=== PATIENT | female | born 1980 | race American Indian/Alaskan Native ===

== ENCOUNTER 2016-07-22 08:59 | Day surgery (SDC) | payer BC ==
[2016-07-16 09:45] LABS: Basophils % (Auto) 0.8 % (0.0-1.8); Hematocrit 35.4 % (30.3-42.9); Hemoglobin 11.8 gm/dl (10.1-14.3); Mean Corpuscular HGB Conc 33 % (30-34); Mean Corpuscular Hemoglobin 29 pg (28-32); Mean Corpuscular Volume 88 fl (79-97); Platelet Count 178 K/mm3 (140-440); Red Blood Count 4.03 M/mm3 (3.65-5.03); Red Cell Distribution Width 13.5 % (13.2-15.2); White Blood Count 5.8 K/mm3 (4.5-11.0)
--- NOTE | 2016-07-16 10:03 | Anesthesia Consultation ---
Anesthesia Consult and Med Hx Date of service: 07/16/16 - Airway Anesthetic Teeth Evaluation: Good, Crowns (right upper molar) ROM Head & Neck: Adequate Mental/Hyoid Distance: Adequate Mallampati Class: Class II Intubation Access Assessment: Probably Good - Pre-Operative Health Status ASA Pre-Surgery Classification: ASA2 Proposed Anesthetic Plan: General - Pulmonary Hx Asthma: No COPD: No Hx Pneumonia: No - Cardiovascular System Hx Hypertension: No Hx Cardia Arrhythmia: Yes (palpitations, normal EKG) - Central Nervous System Hx Seizures: No Hx Psychiatric Problems: No - Endocrine Hx Renal Disease: Yes (kidney stone) Hx End Stage Renal Disease: No Hx Hypothyroidism: No Hx Hyperthyroidism: No - Hematic Hx Anemia: Yes () Hx Sickle Cell Disease: No - Other Systems Hx Alcohol Use: No Hx Cancer: No
--- NOTE | 2016-07-21 14:19 | History and Physical Report ---
History of Present Illness Date of examination: 07/16/16 Date of admission: 07/22/2016 Chief complaint: here for TL. History of present illness: Pt here for TL. All methods of TL were d/w including salpigectomy. Pt desires salpingectomy. Pt has no other c/o. All questions were addressed and answered.Consents were singed and placed on the chart. Visit Type: Pre-Op CC: pre op. History of Present Illness: pt presents for pre op visit: Salpingectomy......anatoliy Pt desires tubal ligation. Several methods were d/w and she desires the salpingectomy. All risk/benefits/alternatives were d/w pt and questions were addressed and answered. Pt was given ample time to ask questions prior to signing the consents. Vital Signs: Patient Profile: 36 Years Old Female LMP: 06/24/2016 Height: 67 inches (170.18 cm) Weight: 160 pounds BMI: 25.06 BP sittin / 72 (left arm) Menstrual History: LMP (date): 06/24/2016 Current Method of Contraception: None Past History : 2 Term Births: 1 Premature Births: 1 Living Children: 2 Para: 2 # 1 Delivery date: 12/04/2010 Weeks Gestation: 39 Delivery type: Vaginal Hours of labor: 10 Anesthesia type: local Delivery location: [facility] Sex: female weight: 7.31 Name: Christopher Comments: none # 2 Delivery date: 04/06/2013 Weeks Gestation: 36.6 Delivery type: Vaginal Anesthesia type: epidural Delivery location: [facility] Sex: female weight: 7.63 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 of genital herpes: no Partner hx. 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: denies: abnormal PAP smear Family/Genetic History: denies: none Social history: single - Obstetrical History : 2 Medications and Allergies Allergies Allergy/AdvReac Type Severity Reaction Status Date / Time No Known Allergies Allergy Verified 07/15/16 14:28 Home Medications Medication Instructions Recorded Confirmed Last Taken Type No Known Home Medications [No 07/15/16 07/15/16 Unknown History Reported Home Medications] Active Meds: Active Medications Famotidine (Pepcid) 20 mg IV PREOP NR Stop: 07/22/16 23:59 Lactated Ringer's (Lactated Ringers) 1,000 mls @ 100 mls/hr IV DIRECT MARIA INES Cefazolin Sodium (Ancef/Sterile Water 2 Gm/20 Ml) 2 gm in 20 mls @ 80 mls/hr IV PREOP NR PRN Reason: Protocol Midazolam HCl (Versed) 2 mg IV PREOP NR Stop: 07/22/16 23:59 Review of Systems All systems: negative - Vital Signs Vital signs: Vital Signs Temp Pulse Resp BP 98.3 F 68 14 100/60 07/16/16 09:30 07/16/16 09:30 07/16/16 09:30 07/16/16 09:30 Temp Pulse Resp BP Pulse Ox 98.3 F 68 14 100/60 07/16/16 09:30 07/16/16 09:30 07/16/16 09:30 07/16/16 09:30 - Physical Exam Cardiovascular: Normal S1, Normal S2 Lungs: Positive: Clear to auscultation, Normal air movement Abdomen: Positive: normal appearance, soft, normal bowel sounds. Negative: distention, tenderness, guarding Extremities: Positive: normal. Negative: tenderness, edema Deep Tendon Reflex Grade: Normal +2 Results Result Diagrams: 07/16/16 09:41 All other labs normal. Assessment and Plan - Patient Problems (1) Encounter for female sterilization procedure Status: Acute Plan to address problem: -consents signed -admit and prepare for salpingectomy
[~2016-07-22 08:59] MED LIST: ANCEF/STERILE WATER 2 GM/20 ML 2 GM/20 ML SYRINGE IV NR; LACTATED RINGERS 1,000 ML IV SCH; PEPCID IV NR; VERSED IV NR
[2016-07-22] MEDS ORDERED: ZOFRAN IV PRN (09:21)
[2016-07-22] MEDS ORDERED: DILAUDID IV PRN (09:21)
[2016-07-22] MEDS ORDERED: ZEMURON IV ONE (10:35)
[2016-07-22] MEDS ORDERED: SUBLIMAZE ONE (10:35)
[2016-07-22] MEDS ORDERED: DIPRIVAN 10 MG/ML IV ONE (10:35)
[2016-07-22] MEDS ORDERED: XYLOCAINE MPF 2% ONE (10:35)
--- NOTE | 2016-07-22 10:43 | Anesthesia Day of Surgery ---
Anesthesia Day of Surgery - Day of Surgery Patient Examined: Yes Patient H&P Reviewed: Yes Patient is NPO: Yes
[2016-07-22] MEDS ORDERED: MARCAINE 0.5% 30 ML INFILTRATI ONE (11:01)
[2016-07-22] MEDS ORDERED: ANCEF/STERILE WATER 2 GM/20 ML 2 GM/20 ML SYRINGE IV ONE (11:29)
[2016-07-22] MEDS ORDERED: ROBINUL ONE (11:36)
[2016-07-22] MEDS ORDERED: TORADOL ONE (11:36)
[2016-07-22] MEDS ORDERED: ZOFRAN ONE (11:36)
[2016-07-22] MEDS ORDERED: NEOSTIGMINE ONE (11:36)
[2016-07-22] MEDS ORDERED: DECADRON ONE (11:37)
[2016-07-22] MEDS ORDERED: MARCAINE 0.5% INFILTRATI ONE ×2 (11:57)
[2016-07-22] MEDS ORDERED: NACL 0.9% IR ONE (11:58)
--- NOTE | 2016-07-22 12:41 | Short Stay Summary ---
Short Stay Documentation Date of service: 07/22/16 - History H&P: dictated Social history: single - Allergies and Medications Current Medications: Allergies No Known Allergies Allergy (Verified 07/15/16 14:28) Home Medications Medication Instructions Recorded Confirmed Last Taken Type RX: Ibuprofen [Motrin 800 MG tab] 800 mg PO Q6HR PRN #30 tablet 07/22/16 Unknown Rx oxyCODONE /ACETAMINOPHEN [Percocet 1 tab PO Q4HR #30 tab 07/22/16 Unknown Rx 5/325] Active Medications Famotidine (Pepcid) 20 mg IV PREOP NR Stop: 07/22/16 23:59 Last Admin: 07/22/16 10:12 Dose: 20 mg Hydromorphone HCl (Dilaudid) 0.5 mg IV Q10MIN PRN PRN Reason: Pain , Severe (7-10) Stop: 07/22/16 23:59 Lactated Ringer's (Lactated Ringers) 1,000 mls @ 100 mls/hr IV DIRECT MARIA INES Last Admin: 07/22/16 10:10 Dose: 100 mls/hr Midazolam HCl (Versed) 2 mg IV PREOP NR Stop: 07/22/16 23:59 Last Admin: 07/22/16 10:17 Dose: 1 mg Ondansetron HCl (Zofran) 4 mg IV ONCE PRN PRN Reason: Nausea And Vomiting Stop: 07/22/16 23:59 - Physical exam General appearance: no acute distress, well-nourished Breasts: deferred Heart: Regular rate, Normal S1, Normal S2 Gastrointestinal: normal Rectal Exam: deferred Extremities: no ischemia, pulses intact, pulses symmetrical, No edema - Brief post op/procedure progress note Date of procedure: 07/22/16 Pre-op diagnosis: sterilizaton Post-op diagnosis: same Procedure: salpingectomy Anesthesia: GETA Findings: normal tubes b/l normal ovaries b/l normal uterus Surgeon: SHAWNA PARRA Estimated blood loss: minimal Pathology: list (left and right tubes in segments for both) Specimen disposition: to lab Condition: stable - Hospital course Hospital course: Pt admitted for the above procedure. s/p salpingectomy. Pt had no complications. pt to be d/c home after recovery completed and she has met criteria for d/c in PACU. - Disposition Condition at discharge: Good Disposition: DISCHARGED TO HOME OR SELFCARE - Discharge Diagnoses (1) Encounter for female sterilization procedure Status: Acute Short Stay Discharge Plan Activity: no restrictions Weight Bearing Status: Weight Bear as Tolerated Diet: regular Wound: open to air Follow up with: PRIMARY CARE, [Primary Care Provider] - 7 Days Prescriptions: RX: Ibuprofen [Motrin 800 MG tab] 800 mg PO Q6HR PRN #30 tablet PRN Reason: Pain oxyCODONE /ACETAMINOPHEN [Percocet 5/325] 1 tab PO Q4HR #30 tab
--- NOTE | 2016-07-22 13:05 | Post Anesthesia Evaluation ---
- Post Anesthesia Evaluation Patient Participated: Yes Airway Patent: Yes Stable Respiratory Function: Yes Nausea/Vomiting: No Temp > 96.8F: Yes Pain Manageable: Yes Adequeate Hydration: Yes Anesthesia Complications: No Block Receding Appropriately: Not Applicable Patient on Ventilator: No
--- NOTE | 2016-07-22 13:07 | Operative Report ---
Operative Report Operative Report: Date of procedure: 07/22/2016 Pre-operative diagnosis: Desires permanent sterilization Post-operative diagnosis: Same Procedure name(s): Laparoscopic salpingectomy bilateral Surgeon: Dr. 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 endotracheal anesthesia EBL: Minimal Urine output: 50 mL of clear urine out via straight catheterization at the beginning of the procedure Fluids: 500 mL Findings: Normal fallopian tubes and ovaries bilaterally. Normal uterus. Indications: Patient presents for laparoscopic salpingectomy. Several methods of sterilization were discussed with the patient. Patient desired the above- stated procedure. All risks benefits and alternatives were discussed with the patient. Consents were signed and placed on the chart. Procedure: Patient was taken to the operating room and which she was placed under general endotracheal anesthesia. Patient was then prepped and draped in sterile fashion and placed in dorsal lithotomy position in Audi stirrups. The uterus was sounded to approximately 7-1/2 cm. Attention was then turned to the vagina in which a Humi uterine manipulator was placed. Patient underwent straight catheterization. Attention was then turned to the umbilicus and which an infraumbilical incision was made with the scalpel 5mm trocar was placed using direct visualization with the camera. Abdomen was then insufflated with gas. Under direct visualization a second and third 8 mm trocar were placed. The [place] LigaSure device was used to cauterize and transect the fallopian tube bilaterally. After salpingectomy was completed all instruments were removed from the abdomen under direct visualization. All gas was also released from the abdomen. The subcuticular fat was re-approximated with 2-0 Vicryl. The skin was approximated with 4-0 Monocryl in a subcuticular stitch. The patient tolerated procedure well. Sponge, lap, and needle counts were all correct x3 the patient was taken to the recovery room awake and in stable condition.
[2016-07-22 13:54] VITALS: BP 108/55
== END 2016-07-22 09:00 | disposition home or self-care (01) ==
LOC: OR 08:59
PROVIDERS: ATTEND Obstetrics & Gynecology
DX: Z30.2 Encounter for sterilization (principal); N83.8 Other noninflammatory disorders of ovary, fallopian tube and broad ligament; Z87.442 Personal history of urinary calculi
CPT/HCPCS: 36415; 58661; 84703; 85025; 88302; 93005; 93010; J0690; J1100; J1170; J1885; J2250; J2405; J2704; J2710; J3010; J7120